=== PATIENT | male | born 1960 | race Two or more races ===

== ENCOUNTER 2018-10-10 17:59 | Emergency (ER) | payer OTHER ==
[~2018-10-10] VITALS: Ht 157.5 cm; Wt 65.8 kg
[~2018-10-10 17:59] MED LIST: BENADRYL25 MG PO; CEFUROXIME500 MG PO; KETO10TA2 PO; MEDROL8 MG PO
== END 2018-10-10 20:00 | disposition home or self-care (01) ==
LOC: ER 17:59
DX: T22.111A Burn of first degree of right forearm, initial encounter (principal); T21.11XA Burn of first degree of chest wall, initial encounter; X11.8XXA Contact with other hot tap-water, initial encounter; Y93.89 Activity, other specified; Y92.89 Other specified places as the place of occurrence of the external cause; Y99.8 Other external cause status

== ENCOUNTER 2020-01-08 13:35 | Emergency (ER) | payer OTHER ==
[~2020-01-08] VITALS: Ht 157.5 cm; Wt 76.7 kg
[2020-01-08] MEDS ORDERED: ORPHENADRINE C100 MG PO (16:31)
[2020-01-08] MEDS ORDERED: CYCLOBENZAPRINE10 MG PO (16:31)
[2020-01-08] MEDS ORDERED: KETO10TA2 PO (16:31)
== END 2020-01-08 18:02 | disposition home or self-care (01) ==
LOC: ER 13:35
DX: M62.830 Muscle spasm of back (principal); M54.5 Low back pain

== ENCOUNTER 2020-09-27 14:19 | Emergency (ER) | payer OTHER ==
[~2020-09-27] VITALS: Ht 157.5 cm; Wt 72.1 kg
[~2020-09-27 14:19] MED LIST changes: +CYCLOBENZAPRINE10 MG PO; +ORPHENADRINE C100 MG PO
[2020-09-27] MEDS ORDERED: ATIVAN1 M1 PO (14:30)
[2020-09-27] MEDS ORDERED: NORFLEX100MG PO (18:06)
[2020-09-27] MEDS ORDERED: KETO10TA2 PO (18:06)
== END 2020-09-27 18:50 | disposition home or self-care (01) ==
LOC: ER 14:19
DX: M54.5 Low back pain (principal)

== ENCOUNTER 2020-11-29 13:29 | Emergency (ER) | payer OTHER ==
[~2020-11-29] VITALS: Ht 154.9 cm; Wt 71.7 kg
[~2020-11-29 13:29] MED LIST changes: +ATIVAN1 M1 PO; +NORFLEX100MG PO
[2020-11-29] MEDS ORDERED: NORFLEX100MG PO (19:03)
== END 2020-11-29 19:06 | disposition home or self-care (01) ==
LOC: ER 13:29
DX: S89.82XA Other specified injuries of left lower leg, initial encounter (principal); X50.1XXA Overexertion from prolonged static or awkward postures, initial encounter; Y93.K1 Activity, walking an animal; Y92.480 Sidewalk as the place of occurrence of the external cause; Y99.8 Other external cause status

== ENCOUNTER 2021-02-10 14:56 | Emergency (ER) | payer OTHER ==
[~2021-02-10] VITALS: Ht 162.6 cm; Wt 70.3 kg
== END 2021-02-10 19:29 | disposition home or self-care (01) ==
LOC: ER 14:56
DX: J02.9 Acute pharyngitis, unspecified (principal); R09.82 Postnasal drip; J31.0 Chronic rhinitis; Z03.818 Encounter for observation for suspected exposure to other biological agents ruled out

== ENCOUNTER → 2021-04-13 | Emergency (ER) | payer OTHER | END | disposition left against medical advice (07) | LOC: ER 10:41 | DX: Z53.21 Procedure and treatment not carried out due to patient leaving prior to being seen by health care provider (principal) ==

== ENCOUNTER 2021-08-04 17:05 | Emergency (ER) | payer OTHER ==
[~2021-08-04] VITALS: Ht 157.5 cm; Wt 69.4 kg
[2021-08-04] MEDS ORDERED: FLONASE ALLERG9.9 ML NASAL (19:28)
[2021-08-04] MEDS ORDERED: ZYRTEC10 M3 PO (19:28)
== END 2021-08-04 19:43 | disposition home or self-care (01) ==
LOC: ER 17:05
DX: J31.0 Chronic rhinitis (principal); R09.82 Postnasal drip; Z88.2 Allergy status to sulfonamides

== ENCOUNTER 2021-08-30 14:05 | Emergency (ER) | payer OTHER ==
[~2021-08-30] VITALS: Ht 157.5 cm; Wt 69.4 kg
[~2021-08-30 14:05] MED LIST changes: +FLONASE ALLERG9.9 ML NASAL; +ZYRTEC10 M3 PO
[2021-08-30] MEDS ORDERED: CETIRIZINE HCL10 MG PO (14:23)
[2021-08-30] MEDS ORDERED: FLONASE16 GM NS (14:23)
== END 2021-08-30 16:41 | disposition home or self-care (01) ==
LOC: ER 14:05
DX: M79.606 Pain in leg, unspecified (principal); Z88.2 Allergy status to sulfonamides

== ENCOUNTER → 2021-08-31 08:25 | Outpatient (CLI) | payer OTHER ==
[~2021-08-31 08:25] MED LIST changes: +CETIRIZINE HCL10 MG PO; +FLONASE16 GM NS
== END | disposition home or self-care (01) ==
LOC: NUCLEAR 08:25
DX: I73.9 Peripheral vascular disease, unspecified (principal); I79.8 Other disorders of arteries, arterioles and capillaries in diseases classified elsewhere; Z88.2 Allergy status to sulfonamides